=== PATIENT | female | born 1995 | race Caucasian/White ===

== ENCOUNTER 2018-01-12 19:32 | Emergency (ER) | payer OTHER ==
[~2018-01-12] VITALS: Ht 172.7 cm; Wt 61.2 kg
== END 2018-01-12 22:53 | disposition home or self-care (01) ==
LOC: ER 19:32
DX: J03.80 Acute tonsillitis due to other specified organisms (principal)

== ENCOUNTER 2019-06-05 13:31 | Emergency (ER) | payer OTHER ==
[~2019-06-05] VITALS: Ht 172.7 cm; Wt 63.5 kg
== END 2019-06-05 17:22 | disposition home or self-care (01) ==
LOC: ER 13:31
DX: S40.022A Contusion of left upper arm, initial encounter (principal); S30.0XXA Contusion of lower back and pelvis, initial encounter; W10.8XXA Fall (on) (from) other stairs and steps, initial encounter; Y93.89 Activity, other specified; Y92.018 Other place in single-family (private) house as the place of occurrence of the external cause; Y99.8 Other external cause status

== ENCOUNTER 2021-07-22 12:32 | Outpatient (CLI) | payer OTHER | END 2021-07-22 14:18 | disposition home or self-care (01) | LOC: RAD 12:32 | PROVIDERS: ATTEND Internal Medicine | DX: J44.1 Chronic obstructive pulmonary disease with (acute) exacerbation (principal) ==

== ENCOUNTER 2021-08-23 12:28 | Outpatient (CLI) | payer OTHER | END 2021-08-23 12:58 | disposition home or self-care (01) | LOC: SONOGRAMA 12:28 | PROVIDERS: ATTEND Obstetrics & Gynecology | DX: N60.29 Fibroadenosis of unspecified breast (principal); N60.09 Solitary cyst of unspecified breast ==

== ENCOUNTER 2023-11-19 13:19 | Emergency (ER) | payer OTHER ==
[~2023-11-19] VITALS: Ht 174 cm; Wt 68.0 kg
[2023-11-19] MEDS ORDERED: FIORICET (14:12)
[2023-11-19] MEDS ORDERED: CEFTRIAXONE SODIUM 1,000 MG VIAL IM STA (18:11)
[2023-11-19] MEDS ORDERED: KETOROLAC TROMETHAMINE 30 MG VIAL IM STA (18:12)
== END 2023-11-19 18:38 | disposition home or self-care (01) ==
LOC: ER 13:20
DX: J03.80 Acute tonsillitis due to other specified organisms (principal); B96.89 Other specified bacterial agents as the cause of diseases classified elsewhere